=== PATIENT | male | born 1955 | race Caucasian/White ===

== ENCOUNTER 2017-03-20 02:41 | Emergency (ER) | payer SELFPAY ==
[~2017-03-20] VITALS: Ht 180.3 cm; Wt 111.6 kg
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
[2017-03-20] MEDS ORDERED: LORAZEPAM INJ 2 MG/ML VIAL ONE ×4 (03:20→09:01)
[2017-03-20] MEDS ORDERED: LORAZEPAM INJ 2 MG/ML VIAL IM ONE ×2 (03:30→09:00)
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
[2017-03-20] MEDS ORDERED: TDAP [DIPH/PERTUSSIS/TET] 0.5 ML VIAL IM ONE ×2 (05:29→05:30)
--- NOTE | 2017-03-20 05:34 | NUR ---
WAITING FOR PATIENT TO RETURN FROM CT. WILL CONTINUE TO MONITOR
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
--- NOTE | 2017-03-20 07:18 | NUR ---
REPORT GIVEN TO SANDY FERNANDEZ
--- NOTE | 2017-03-20 07:23 | NUR ---
REPORT RECEIVED FROM LISET.
[2017-03-20] MEDS ORDERED: LORAZEPAM INJ 2 MG/ML VIAL IV ONE ×2 (08:30→09:00)
[2017-03-20] MEDS ORDERED: HALOPERIDOL LACTATE INJ 5 MG/ML VIAL IM ONE (09:00)
[2017-03-20] MEDS ORDERED: HALOPERIDOL LACTATE INJ 5 MG/ML VIAL ONE (09:01)
--- NOTE | 2017-03-20 11:02 | NUR ---
ASSUME PT CARE. SLEEPINGIN BED. ON MONITOR. STABLE VITALS. AROUSABLE TO VERBAL STIMULI. VSS. WILL CONTINUE TO MONITOR.
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
[2017-03-20 14:47] VITALS: BP 134/76
== END 2017-03-20 14:49 | disposition home or self-care (01) ==
LOC: ER 02:43
DX: S00.83XA Contusion of other part of head, initial encounter (principal); F10.129 Alcohol abuse with intoxication, unspecified; Y90.9 Presence of alcohol in blood, level not specified; W18.00XA Striking against unspecified object with subsequent fall, initial encounter; Y93.89 Activity, other specified; Y92.89 Other specified places as the place of occurrence of the external cause; Y99.8 Other external cause status
CPT/HCPCS: 70450; 72125; 90471; 90715; 96372 ×2; 99284; A4606; J1630; J2060 ×3; Z7610